=== PATIENT | female | born 1960 | race Caucasian/White ===

== ENCOUNTER 2020-09-04 18:40 | Emergency (ER) | payer OTHER ==
[2020-09-04 19:13] LABS: BASOPHIL 0.6 % (0-2); EOSINOPHIL 0.8 % (0-5); HCT 37.3 % (37.0-47.0); HGB 12.6 g/dl (12.5-16.0); LYMPHOCYTE 36.5 % (15-48); MCH 29.6 pg (25.0-31.0); MCHC 33.8 g/dL (32.0-36.0); MCV 87.6 fL (78.0-100.0); MONOCYTE 8.9 % (0-12); NEUTROPHIL 53.1 % (41-80); NRBC 0; PLT 455 K/uL (150-400); RBC 4.26 M/uL (4.20-5.40); RDW 12.7 % (11.5-14.0); WBC 7.2 K/uL (4.0-10.5)
[2020-09-04 19:19] LABS: INR 1.04 (0.9-1.2); PROTHROMBIN TIME 12.9 SECONDS (11.4-13.6)
[2020-09-04 19:25] LABS: ALBUMIN 4.1 g/dL (3.4-5.0); BILIRUBIN - TOTAL 0.3 mg/dL (0.2-1.0); BUN/CREAT RATIO (CALC) 17.7 RATIO; CREATININE 0.79 mg/dL (0.51-0.95); GLOBULIN (CALCULATION) 3.2 g/dL; POTASSIUM 3.8 mmol/L (3.5-5.1); TOTAL PROTEIN 7.3 g/dL (6.4-8.2)
[2020-09-04] MEDS ORDERED: ACIPHEX20 MG PO (21:05)
== END 2020-09-04 21:36 | disposition home or self-care (01) ==
LOC: FER 18:40
PROVIDERS: Emergency Medicine
DX: K21.9 Gastro-esophageal reflux disease without esophagitis (principal); R07.9 Chest pain, unspecified; F17.210 Nicotine dependence, cigarettes, uncomplicated; Z88.5 Allergy status to narcotic agent; Z98.51 Tubal ligation status
CPT/HCPCS: 36415; 71045; 80053; 84484; 85025; 85610; 85730; 93005